=== PATIENT | female | born 1955 | race Caucasian/White ===

== ENCOUNTER 2025-04-25 14:47 | Outpatient (CLI) | payer MEDICARE, SELFPAY ==
--- OUTSIDE RECORDS SUMMARY | 2025-03-08 09:30 | XMS_ITS | Encounter Summary ---
Author Organization [facility] nter Address [address] [place] [address] Care Team Providers Care Felt Finisher Name Role Phone German Aleman Primary Care Provider Reason for Visit * Reason Comments Follow-up Varicose Veins Encounter Details Date Type Department Care Team (Late st Contact Info) Description 03/08/2025 9:30 AM EDT Office Visit [facility] [address], [address]st [place] [address] Vianca Kelly MD [address] [place] [address] Varicose veins of both legs with edema (Primary Dx) Social History Tobacco Use Types Packs/Day Years Used Date Smoking Tobacco: Never Smokeless Tobacco: Never Alcohol Use Standard Drinks/Week Comments Never 0 (1 standard drink = 0.6 oz pur e alcohol) PHQ-2 Answer Date Recorded Patient Health Questionnaire-2 Score 0 07/19/2024 Comments No Sex and Gender Information Value Date Recorded Sex Assigned at Female 10/09/2021 12:51 PM EST Legal Sex Female 12:51 PM EST Gender Identity Not on file Sexual Orientation Straight 03/01/2025 9: 46 AM EDT documented as of this encounter Last Filed Vital Signs Vital Sign Reading Time Taken Comments Blood Pressure 146/60 03/08/2025 9:40 AM EDT Pulse 91 03/08/2025 9:40 AM EDT Temperature - - Respiratory Rate - - Oxygen Saturation 93% 03/08/2025 9:40 AM EDT Inhaled Oxygen Concentration - - Weight 75.6 kg (166 lb 9.6 oz) 03/08/2025 9:40 A M EDT Height - - Body Mass Index 28.6 12/21/2024 11:32 AM EDT documented in this encounter Progress Notes * Vianca Kelly MD - 03/08/2025 9:30 AM EDT Patient ID: Lora Carter is a 69 y.o. female Date of : 1955 Date of Service: 03/08/2025 Provider: Vianca Kelly MD Chief Complaint Chief Complaint Patient presents with Follow-up Varicose Veins Subjective Leg Swelling Severity: Not severe Status: stable Complaint: Swelling Complaint: no Pain Symptoms: Swelling Location: Calf Location: Bilateral Eacerbating Factors: Sitting and worse in evening Relieving Factors: Elevation of limb Prior Treatment: Compression HISTORY Past Medical History: Diagnosis Date Arthritis Celiac disease/sprue Diabetes mellitus Environmental allergies Hyperlipidemia Hypertension Liver disease Past Surgical History: Procedure Laterality Date BLADDER SURGERY CAPSULOTOMY Bilateral 2016 Dr. Steiner PCO LASER CATARACT EXTRACTION W/ INTRAOCULAR LENS IMPLANT Left 09/09/2011 Dr. Obdulia MARSHALL ZMA00 33.0D+4D CATARACT EXTRACTION W/ INTRAOCULAR LENS IMPLANT Right 09/02/2011 Dr. Obdulia MARSHALL AMA00 34.0D+4D SECTION, CLASSIC COLONOSCOPY 2019 HYSTERECTOMY TONSILLECTOMY TOTAL HIP ARTHROPLASTY Bilateral left 07-06-2024 UPPER GASTROINTESTINAL ENDOSCOPY Social History Tobacco Use Smoking status: Never Smokeless tobacco: Never Substance Use Topics Alcohol use: Never Drug use: Never ALLERGY Allergies Allergen Reactions Percocet [Oxycodone-Acetaminophen] Nausea And Vomiting MEDICATIONS Current Outpatient Medications: Calcium Citrate (CITRACAL PO), Take by mouth in the morning., Disp: , Rfl: carvedilol (Coreg) 12.5 MG tablet, Take 1 tablet (12.5 mg) by mouth with breakfast and with eveningmeal., Disp: 180 tablet, Rfl: 3 Cholecalciferol (VITAMIN D-3 PO), Take by mouth., Disp: , Rfl: Clarinex-D 12 Hour 2.5-120 MG 12 hr tablet, Take 1 tablet by mouth in the morning and at bedtime. Take morning of surgery., Disp: , Rfl: Clobetasol Propionate 0.05 % lotion, Apply 1 Application topically in the morning and at bedtime. Hold morning of surgery., Disp: , Rfl: desonide (DesOwen) 0.05 % cream, Apply 1 application. topically if needed. Hold morning of surgery., Disp: , Rfl: estradiol (Vivelle-DOT) 0.1 MG/24HR, Place 1 patch on the skin 2 (two) times a week., Disp: , Rfl: furosemide (Lasix) 20 MG tablet, Take 1 tablet (20 mg) by mouth in the morning. Hold morning of surgery., Disp: , Rfl: glimepiride (Amaryl) 2 MG tablet, Take 1 tablet (2 mg) by mouth in the morning and at bedtime., Disp: , Rfl: ketoconazole (NIZOral) 2 % shampoo, Apply topically 2 (two) times a week., Disp: , Rfl: losartan-hydroCHLOROthiazide (Hyzaar) 100-25 MG tablet, Take 1 tablet by mouth in the morning. Holdmorning of surgery., Disp: , Rfl: Melatonin 5 MG tablet, Take 2 tablets (10 mg) by mouth at bedtime. Take night before surgery., Disp: , Rfl: metFORMIN XR (Glucophage-XR) 500 MG 24 hr tablet, Take 2 tablets (1,000 mg) by mouth in the morningand at bedtime. Hold morning of surgery., Disp: , Rfl: polyethylene glycol (Glycolax) 17 g packet, Take 17 g by mouth at bedtime. Take night before procedure., Disp: , Rfl: pravastatin (Pravachol) 40 MG tablet, Take 1 tablet (40 mg) by mouth in the evening. Take night before surgery., Disp: , Rfl: testosterone (Androgel) 25 MG/2.5GM (1%) gel, Place 1 packet (25 mg) on the skin at bedtime. Hold night before and morning of surgery., Disp: , Rfl: triamcinolone (Kenalog) 0.1 % cream, Apply 1 application. topically in the morning and at bedtime. Hold morning of procedure., Disp: , Rfl: ursodiol (Actigall) 300 MG capsule, Take 2 capsules (600 mg) by mouth in the morning and at bedtime. With food. Hold morning of procedure., Disp: , Rfl: There is no immunization history for the selected administration types on file for this patient. Health Maintenance Topic Date Due Colorectal Cancer Screening Never done DTaP/Tdap/Td Vaccines (1 - Tdap) Never done Pneumococcal Vaccine (1 of 2 - PCV) Never done Diabetes: Retinopathy Screening 05/07/2024 Diabetes: Hemoglobin A1C 09/23/2024 Influenza Vaccine (1) 04/03/2025 Mammogram 2025 RSV 60+ and patients (1 - 1-dose 75+ series) 2028 Bone Density Scan Completed RSV under 20 month Aged Out ROS Review of Systems Constitutional: Negative. HENT: Negative. Respiratory: Negative. Cardiovascular: Positive for leg swelling. Gastrointestinal: Negative. Genitourinary: Negative. Musculoskeletal: Negative. Skin: + prominent veins + spider veins Neurological: Negative. Hematological: Negative. Psychiatric/Behavioral: Negative. VITALS Vitals: 03/08/25 0940 BP: 146/60 Pulse: 91 SpO2: 93% Physical Exam Constitutional: Appearance: Normal appearance. Eyes: Pupils: Pupils are equal, round, and reactive to light. Cardiovascular: Rate and Rhythm: Normal rate. Pulses: Normal pulses. Pulmonary: Effort: Pulmonary effort is normal. Abdominal: Palpations: Abdomen is soft. Musculoskeletal: Right lower leg: No edema. Left lower leg: No edema. Skin: General: Skin is warm and dry. Comments: Varicose and spider veins bilateral lower legs and feet. Neurological: General: No focal deficit present. Mental Status: She is alert. Psychiatric: Mood and Affect: Mood normal. Behavior: Behavior normal. Assessment/Plan 1. Varicose veins of both legs with edema Has spider veins of BLE. Denies aching, itching, or dragging. She reports Improvement with compression stockings. Plan: Continue compression stockings to be worn during waking hours. Daily leg elevation advised. Increase walking distance and duration. Do not sleep in a sitting position. Discussed sodium control. Maintain healthy BP and cholesterol levels. Sclerotherapy was discussed as option for treatment of spider veins. Patient will consider this andcontact office if interested in scheduling. Follow up in 1 year for symptom check. Patient care plan was discussed in detail. Patient verbalized understanding and agreement to the treatment plan. All patient questions were addressed. If new or worsening symptoms develop go to ER. I was present for this encounter, and I interviewed and examined the patient. This note represents my assessment and plan Vianca Kelly MD, FACS Vascular Surgery. documented in this encounter Plan of Treatment Upcoming Encounters Date Type Department Care Team (Late st Contact Info) Description 05/19/2025 10:00 AM EDT Appointment [facility] - GENERAL DIAGNOSTIC [facility] [address], [place] [id number] 06/22/2025 10:00 AM EST Office Visit [facility] [address], 6[address] [place] [address] Lauri Lindsey MD [address] [place] [address] 06/26/2025 11:00 AM EST Office Visit [facility] [address], [address]st [place] [address] Tamara Burrows NP [address] [place] [address] 03/09/2026 9:30 AM EDT Office Visit [facility] [address], [address] [place] [address] Vianca Kelly MD [address] [facility] [place] [address] documented as of this encounter Visit Diagnoses Diagnosis Varicose veins of both legs with edema- Primary documented in this encounter Care Teams Felt Finisher Relationship Specialty Start Date End Date German Aleman, [address] [facility] [address] [place] [address] PCP - General Family Medicine 12/26/22 documented as of this encounter
--- OUTSIDE RECORDS SUMMARY | 2025-04-25 14:55 | XMS_ITS | Encounter Summary ---
Author Organization [facility] nter Address [address] [place] [address] Care Team Providers Care Outboard System Operator Name Role Phone German Aleman Primary Care Provider Encounter Details Date Type Department Care Team (Late st Contact Info) Description 07/07/2024 Orders Only [facility] [address], 6th [place] [id number] Barby Elvi Palomares, RETAIL LOSS PREVENTION OFFICER [address] [place] [address] Social History Tobacco Use Types Packs/Day Years Used Date Smoking Tobacco: Never Smokeless Tobacco: Never Alcohol Use Standard Drinks/Week Comments Never 0 (1 standard drink = 0.6 oz pur e alcohol) PHQ-2 Answer Date Recorded Patient Health Questionnaire-2 Score 0 06/23/2024 Comments No Sex and Gender Information Value Date Recorded Sex Assigned at Female 10/09/2021 12:51 PM EST Legal Sex Female 12:51 PM EST Gender Identity Not on file Sexual Orientation Straight 03/01/2025 9: 46 AM EDT documented as of this encounter Plan of Treatment Upcoming Encounters Date Type Department Care Team (Late st Contact Info) Description 05/19/2025 10:00 AM EDT Appointment [facility] - GENERAL DIAGNOSTIC [address] [place] [address] 06/22/2025 10:00 AM EST Office Visit [facility] [address], 6th [place] [address] Lauri Lindsey MD [facility] [place] [address] 06/26/2025 11:00 AM EST Office Visit [facility] [address], 1st [place] [address] Tamara Burrows NP [address] [place] [address] 03/09/2026 9:30 AM EDT Office Visit [facility] [address], [address] [place] [address] Vianca Kelly MD [facility] [place] [address] documented as of this encounter Visit Diagnoses Not on filedocumented in this encounter Care Teams Outboard System Operator Relationship Specialty Start Date End Date German Aleman DO [address] [facility] [place] [address] [place] [address] PCP - General Family Medicine 12/26/22 documented as of this encounter
--- OUTSIDE RECORDS SUMMARY | 2025-04-25 14:55 | XMS_ITS | Clinical Summary ---
Author Organization Healthcare Address [address] [place] [address] Care Team Providers Care Order Clerk Name Role Phone Kasie Breen MD Primary Care Provider [phone] Family History Medical History Relation Name Comments Osteoporosis Other Relation Name Status Comments Other Social History Tobacco Use Types Packs/Day Years Used Date Smoking Tobacco: Never Alcohol Use Standard Drinks/Week Comments No 0 (1 standard drink = 0.6 oz pure alcohol) Alcoholic Drinks/day: Never Drank Alcohol Comments Unknown Sex and Gender Information Value Date Recorded Sex Assigned at Not on file Legal Sex Female 6:05 PM EDT Gender Identity Not on file Sexual Orientation Not on file Last Filed Vital Signs Vital Sign Reading Time Taken Comments Blood Pressure - - Pulse - - Temperature - - Respiratory Rate - - Oxygen Saturation - - Inhaled Oxygen Concentration - - Weight 66.2 kg (146 lb 0.2 oz) 09/21/2013 3:05 P M EST Height 161.3 cm (5' 3.5 ) 09/21/2013 3:05 PM EST Body Mass Index 25.46 09/21/2013 3:05 PM EST Plan of Treatment Not on file Care Teams Order Clerk Relationship Specialty Start Date End Date Kasie Breen MD [address] [place], [place] [id number] PCP - General 12/14/20
--- OUTSIDE RECORDS SUMMARY | 2025-04-25 14:55 | XMS_ITS | Encounter Summary ---
Author Organization [facility] nter Address [address] [place] [address] Care Team Providers Care Seat Mender Name Role Phone German Aleman Primary Care Provider Encounter Details Date Type Department Care Team (Late st Contact Info) Description 03/20/2023 Orders Only [facility] [address], 1st [place] [address] Vianca Kelly MD [address] [place] [address] Social History Tobacco Use Types Packs/Day Years Used Date Smoking Tobacco: Never Smokeless Tobacco: Never Alcohol Use Standard Drinks/Week Comments Never 0 (1 standard drink = 0.6 oz pur e alcohol) Comments Unknown Sex and Gender Information Value Date Recorded Sex Assigned at Female 10/09/2021 12:51 PM EST Legal Sex Female 12:51 PM EST Gender Identity Not on file Sexual Orientation Straight 03/01/2025 9: 46 AM EDT COVID-19 Exposure Response Date Recorded In the last 10 days, have yo u been in contact with someone who was confirmed or suspected to have Coronavirus/COVID-19? No / Unsure 03/04/2023 8:17 AM EDT documented as of this encounter Plan of Treatment Upcoming Encounters Date Type Department Care Team (Late st Contact Info) Description 05/19/2025 10:00 AM EDT Appointment [facility] - GENERAL DIAGNOSTIC [address], [facility] [place] [address] 06/22/2025 10:00 AM EST Office Visit [facility] [address], 6th [place] [address] Lauri Lindsey MD [address] [facility] [place] [address] 06/26/2025 11:00 AM EST Office Visit [facility] [address], [address]st [place] [address] Tamara Burrows NP [address] [place] [id number] 03/09/2026 9:30 AM EDT Office Visit [facility] [address], [address] [place] [address] Vianca Kelly MD [address] [facility] [place] [address] documented as of this encounter Visit Diagnoses Not on filedocumented in this encounter Care Teams Seat Mender Relationship Specialty Start Date End Date German Aleman DO [address] [facility] [address] [place] [address] PCP - General Family Medicine 12/26/22 documented as of this encounter
--- OUTSIDE RECORDS SUMMARY | 2025-04-25 14:55 | XMS_ITS | Encounter Summary ---
Author Organization [facility] nter Address [address] [place] [address] Care Team Providers Care Gum Worker Name Role Phone German Aleman Primary Care Provider Encounter Details Date Type Department Care Team (Latest Contact Info) Description 03/01/2025 Travel Social History Tobacco Use Types Packs/Day Years [...] Info) Description 05/19/2025 10:00 AM EDT Appointment [facility] - [facility]AL DIAGNOSTIC [address], [place] [address] 06/22/2025 10:00 AM EST Office Visit [facility] [address], 6[address] [place] [address] Lauri Lindsey MD [address] [place] [address] 06/26/2025 11:00 AM EST Office Visit [facility] [address], 1st [place] [address] Tamara Burrows NP [address] [place] [address] 03/09/2026 9:30 AM EDT Office Visit [facility] [address], 1[address] [place] [address] Vianca Kelly MD [address] [place] [address] documented as of this encounter Visit Diagnoses Not on filedocumented in this encounter Care Teams Gum Worker Relationship Specialty Start Date End Date German Aleman DO [address] [facility] [address] [place] [address] PCP - General Family Medicine 12/26/22 documented as of this encounter
--- OUTSIDE RECORDS SUMMARY | 2025-04-25 14:55 | XMS_ITS | Clinical Summary ---
Author Organization [facility] nter Address [address] [place] [address] Care Team Providers Care Kitchen Help Handyman Name Role Phone AlemanGerman arias Primary Care Provider Allergies Active Allergy Reactions Criticality Noted Date Comments Oxycodone-Acetaminophen Nausea And Vomiting Medications Clobetasol Propionate 0.05 % lotion Apply 1 Application topically in the morning and at bedtime. Hold morning of surgery. Active Clarinex-D 12 Hour 2.5-120 MG 12 hr tablet Take 1 tablet by mouth in the morning and at bedtime. Take morning of surgery. 3 Active desonide (DesOwen) 0.05 % cream Apply 1 application. topically if needed. Hold morning of surgery. 3 Active estradiol (Vivelle-DOT) 0.1 MG/24HR Place 1 patch on the skin 2 (two) times a week. 3 Active losartan-hydroC HLOROthiazide (Hyzaar) 100-25 MG tablet Take 1 tablet by mouth in the morning. Hold morning of surgery. 3 Active metFORMIN XR (Glucophage-XR) 500 MG 24 hr tablet Take 2 tablets (1,000 mg) by mouth in the morning and at bedtime. Hold morning of surgery. 3 Active Melatonin 5 MG tablet Take 2 tablets (10 mg) by mouth at bedtime. Take night before surgery. Active polyethylene glycol (Glycolax) 17 g packet Take 17 g by mouth at bedtime. Take night before procedure. Active pravastatin (Pravachol) 40 MG tablet Take 1 tablet (40 mg) by mouth in the evening. Take night before surgery. 3 Active triamcinolone (Kenalog) 0.1 % cream Apply 1 application. topically in the morning and at bedtime. Hold morning of procedure. 2 Active ursodiol (Actigall) 300 MG capsule Take 2 capsules (600 mg) by mouth in the morning and at bedtime. With food. Hold morning of procedure. 3 Active testosterone (Androgel) 25 MG/2.5GM (1%) gel Place 1 packet (25 mg) on the skin at bedtime. Hold night before and morning of surgery. Active ketoconazole (NIZOral) 2 % shampoo Apply topically 2 (two) times a week. Active Cholecalciferol (VITAMIN D-3 PO) Take by mouth. Activ e Calcium Citrate (CITRACAL PO) Take by mouth in the morning. Active furosemide (Lasix) 20 MG tablet Take 1 tablet (20 mg) by mouth in the morning. Hold morning of surgery. Active carvedilol (Coreg) 12.5 MG tabletIndicatio ns:Essential hypertension, benign Take 1 tablet (12.5 mg) by mouth with breakfast and with evening meal. 180 tablet 3 5 12/22/19 26 Active glimepiride (Amaryl) 2 MG tablet Take 1 tablet (2 mg) by mouth in the morning and at bedtime. Active Active Problems Problem Noted Date Diagnosed Date Encounter for screening for cardiovascular disor ders 03/20/2023 Varicose veins of both legs with edema 3 Spider veins of both lower extremities 3 Leg swelling 03/04/2023 Type 2 diabetes mellitus wit hout complication, without long-term current use of insulin 05/07/2022 Pseudophakia 05/07/2022 Encounters Date Type Department Care Team Description 03/08/2025 9:30 AM EDT Office Visit [facility] [address] 1[address] Floor [facility] [address] Vianca Kelly MD Varicose veins of both legs with edema (Primary Dx) 03/08/2025 Travel 03/01/2025 Travel from Last 3 Months Family History Medical History Relation Name Comments Cancer Father Cataracts Father Heart disease Father Cataracts Mother Heart disease Mother Relation Name Status Comments Father Mother Social History Tobacco Use Types Packs/Day Years Used Date Smoking Tobacco: Never Smokeless Tobacco: Never Tobacco Cessation:Counseling Given: Not Answered Alcohol Use Standard Drinks/Week Comments Never 0 (1 standard drink = 0.6 oz pur e alcohol) PHQ-2 Answer Date Recorded Patient Health Questionnaire-2 Score 0 07/19/2024 Comments No Sex and Gender Information Value Date Recorded Sex Assigned at Female 10/09/2021 12:51 PM EST Legal Sex Female 12:51 PM EST Gender Identity Not on file Sexual Orientation Straight 03/01/2025 9: 46 AM EDT Last Filed Vital Signs Vital Sign Reading Time Taken Comments Blood Pressure 146/60 03/08/2025 9:40 AM EDT Pulse 91 03/08/2025 9:40 AM EDT Temperature 37 C (98.6 F) 12/01/2024 10:53 AM EDT Respiratory Rate 18 12/01/2024 10:53 AM EDT Oxygen Saturation 93% 03/08/2025 9:40 AM EDT Inhaled Oxygen Concentration - - Weight 75.6 kg (166 lb 9.6 oz) 03/08/2025 9:40 A M EDT Height 162.6 cm (5' 4 ) 12/21/2024 11:32 AM EDT Body Mass Index 28.6 12/21/2024 11:32 AM EDT Plan of Treatment Upcoming Encounters Date Type Department Care Team (Late st Contact Info) Description 05/19/2025 10:00 AM EDT Appointment [facility] - GENERAL DIAGNOSTIC BLDG D [address] [place] [address] 06/22/2025 10:00 AM EST Office Visit [facility] [address], [address] [place] [address] Lauri Lindsey MD [address] [facility] [place] [address] 06/26/2025 11:00 AM EST Office Visit [facility] [address] [place] [address] Tamara Burrows NP [address] [place], [place] [id number] 03/09/2026 9:30 AM EDT Office Visit [facility] [address], [address] [place] [address] Vianca Kelly MD [address] [place] [address] Health Maintenance Due Date Last Done Comments CT Colonography 1953 ColoGuard Screening 1953 Colonoscopy 1953 Colorectal Cancer Screening 1953 FIT-DNA 1953 FIT 1953 FOBT 1953 Sigmoidoscopy 1953 DTaP/Tdap/Td Vaccines (1 - Tdap) 1972 Pneumococcal Vaccine (1 of 2 - PCV) 1972 Diabetes: Retinopathy Screening 05/07/2024 05/07/2022, 05/07/2022, 05/07/2022, Additional history exists Diabetes: Hemoglobin A1C 09/23/2024 06/23/2024 Influenza Vaccine (#1) 2025 Mammogram 2025 2024, 1001/2023, 05/22/2022, Additional history exists RSV 60+ and patients (1 - 1-dose 75+ series) 2028 Bone Density Scan Completed 06/18/2021, 06/18/2021 RSV under 20 month Aged Out No longer eligible based on patient's age to complete this topic Medical Devices Implanted Type Area Customer Service Associate Device Identifier Shelf Expiration Date Model / Serial / Lot Acetabular Shell G7 3h/46mm B [id number] - [id number] Implanted:Qty: 1 on 07/06/2024 by Lauri Lindsey MD at [facility] Left: Hip [employer] 01/03/2034 [id number] / / [id number] Screw Bone 6.5 X25 Self-Tapping - [id number] Implanted:Qty: 1 on 07/06/2024 by Lauri Lindsey MD at [facility] Left: Hip [employer] 05/23/2034 [id number] / / [id number] G7 Acetabular System Liner 32mm Sz B - [id number] Implanted:Qty: 1 on 07/06/2024 by Lauri Lindsey MD at [facility] Left: Hip [employer] 02/10/2029 [id number] / / [id number] Biolox Delta Fem Head 32mm - [id number] Implanted:Qty: 1 on 07/06/2024 by Lauri Lindsey MD at [facility] Left: Hip [employer] 03/02/2034 [id number] / / [id number] Avenir Complete Hip System Sz 3 - [id number] Implanted:Qty: 1 on 07/06/2024 by Lauri Lindsey MD at [facility] Left: Hip [employer] 10/08/2028 [id number] / / [id number] Procedures Procedure Name Priority Date/Time Associated Diagnosis Comments HEMOGLOBIN A1C Routine 06/23/2024 1:00 PM EST Primary osteoarthritis of left hip Fatigue, unspecified type SOB (shortness of breath) Diabetes mellitus of other type without complication, unspecified whether superintendent container terminal insulin use DEXA BONE DENSITY EXTREMITY Routine 06/18/2021 10:19 AM EST from Last 3 Months or Most Recently Relevant to Health Maintenance Results * (ABNORMAL) Hemoglobin A1c (06/23/2024 1:00 PM EST) Hemoglobin A1C 9.4(H) 3.0 - 6.0 % 06/23/2024 2:14 PM EST [facility] Comment: Additional Reference Ranges: 6.0 - 9.0% Controlled Diabetic >9.0 Poorly Controlled Diabetic *Hemoglobin A1c is an FDA approved test for monitoring superintendent container terminal glucose control in individuals with diabetes. It is not an approved screening test for diagnosing type 1 and type 2 diabetes. Results of Hemoglobin A1c are not reliable in patients with chronic blood loss, consequent variable erythrocyte lifespan, hemolytic diseases, , and significant blood loss. MEAN BLOOD GLUCOSE 223.08 mg/dl 06/23/2024 2:14 PM EST [facility] Blood Venous blood specimen / Unknown Venipuncture / Unknown 06/23/2024 1:00 PM EST 06/23/2024 1:43 PM EST Narrative [facility] - 06/23/2024 2:14 PM EST Please note possible changes in reference range and units reported due to change in methodology. Lauri Lindsey MD LAB BLOOD ORDERABLES Final Resul t Performing Organization Address City/State/[facility] Co de Phone Number [facility] [address] [place] [address], * DEXA bone density extremity (06/18/2021 10:19 AM EST) Anatomical Region Laterality Modality Body Radiographic Madai ging 06/18/2021 10:1 9 AM EST Narrative 06/19/2021 1:55 PM EST AP SPINE (L1-L4): BMD 0.838 T-SCORE -1.9 Z-SCORE 0.1 CLASSIFICATION: OSTEOPENIA HIP: TOTAL BMD 0.929 T-SCORE -0.1 Z-SCORE 1.3 NECK BMD 0.743 T-SCORE -1.0 Z-SCORE 0.7 TROCH BMD 0.721 T-SCORE 0.2 Z-SCORE 1.4 CLASSIFICATION: OSTEOPENIA Change from prior scan of 06/25/2016 L1-L4 8.9% Femur 7.0% GENERAL INFORMATION: From the National Osteoporosis Foundation Defining Osteoporosis by BMD The World Health Organization has established the following definitions based on bone mass measurement at the spine, hip, or wrist in white postmenopausal women: NORMAL: BMD is within 1 SD of a young normal adult (T-score at -1.0 and above). OSTEOPENIA: Low bone mass. BMD is between 1 and 2.5 SD below that of a young normal adult (T-score between -1 and -2.5) OSTEOPOROSIS: BMD is 2.5 SD or more below that of a young normal adult (T-score at or below -2.5) Women in this group who have already experienced one or more fractures are deemed to have severe or established osteoporosis. Although these definitions are necessary to establish the prevalence of osteoporosis, they should not be sued as the sole determinant of treatment decisions. NOTE: 1. The densitometry reports also provide Z scores which represent the standard deviations (SD) from age and sex-matched control subjects. 2. The Z score can provide useful diagnostic information because a Z score of -2 or greater below the age and sex-matched control may suggest a secondary cause of osteoporosis. 3. For each 10% decrease in BMD, the fracture risk approximately doubles. Report Sign Date: 06/19/2021 1:53 PM, Electronically Signed By: Salas Vargas MD Impression: SEE REPORT Procedure Note Juice Vargas MD - 10/17/2021 AP SPINE (L1-L4): BMD 0.838 T-SCORE -1.9 Z-SCORE 0.1 CLASSIFICATION:OSTEOPENIA HIP: TOTAL BMD 0.929 T-SCORE -0.1 Z-SCORE 1.3 NECK BMD 0.743 T-SCORE -1.0 Z-SCORE 0.7 TROCH BMD 0.721 T-SCORE 0.2 Z-SCORE 1.4 CLASSIFICATION:OSTEOPENIA Change from prior scan of 06/25/2016 L1-L4 8.9% Femur 7.0% GENERAL INFORMATION: From the National Osteoporosis Foundation Defining Osteoporosis by BMD The World Health Organization has established the following definitionsbased on bone mass measurement at the spine, hip, or wrist in whitepostmenopausal women: NORMAL: BMD is within 1 SD of a young normal adult (T-score at -1.0and above). OSTEOPENIA: Low bone mass. BMD is between 1 and 2.5 SD below that of a young normal adult (T-score between -1 and -2.5) OSTEOPOROSIS: BMD is 2.5 SD or more below that of a young normal adult(T-score at or below -2.5) Women in this group who have alreadyexperienced one or more fractures are deemed to have severe or established osteoporosis. Although these definitions are necessary to establish the prevalence ofosteoporosis, they should not be sued as the sole determinant of treatmentdecisions. NOTE: 1. The densitometry reports also provide Z scores which represent thestandard deviations (SD) from age and sex-matched control subjects. 2. The Z score can provide useful diagnostic information because a Zscore of -2 or greater below the age and sex-matched control may suggest asecondary cause of osteoporosis. 3. For each 10% decrease in BMD, the fracture risk approximatelydoubles. Report Sign Date: 06/19/2021 1:53 PM, Electronically Signed By: Salas Vargas MD Impression: SEE REPORT German Aleman DO IMG DXA PROCEDURES Mckenzie l Result from Last 3 Months or Most Recently Relevant to Health Maintenance Insurance MEDICARE REPLACEMENT Advance Directives * Full Code (Latest Code Status on File) Date Activated Date Inactivated Comments 07/06/2024 7:40 AM 07/06/2024 7:34 PM Care Teams Kitchen Help Handyman Relationship Specialty Start Date End Date German Aleman DO [address] [facility] [address] [place] [address] PCP - General Family Medicine 12/26/22
--- OUTSIDE RECORDS SUMMARY | 2025-04-25 14:55 | XMS_ITS | Encounter Summary ---
Author Organization [facility] nter Address [address] [place] [address] Care Team Providers Care Separator Operator Name Role Phone German Aleman Primary Care Provider Encounter Details Date Type Department Care Team (Latest Contact Info) Description 03/08/2025 Travel Social History Tobacco Use Types Packs/Day [...] BLDG D [address], [place] [address] 06/22/2025 10:00 AM EST Office Visit [facility] [address], 6th [place] [address] Lauri Lindsey MD [address] [place] [address] 06/26/2025 11:00 AM EST Office Visit [facility] [address], 1st [place] [address] Tamara Burrows NP [address] [place] [address] 03/09/2026 9:30 AM EDT Office Visit [facility] [address], 1st [place] [address] Vianca Kelly MD [address] [place] [address] documented as of this encounter Visit Diagnoses Not on filedocumented in this encounter Care Teams Separator Operator Relationship Specialty Start Date End Date German Aleman DO [address] [facility] [address] [place] [address] PCP - General Family Medicine 12/26/22 documented as of this encounter
--- OUTSIDE RECORDS SUMMARY | 2025-04-25 14:55 | XMS_ITS | Encounter Summary ---
Author Organization [facility] nter Address [address] [place] [address] Care Team Providers Care Remodeler Name Role Phone German Aleman Primary Care Provider Encounter Details Date Type Department Care Team (Late st Contact Info) Description 10/22/2023 Telephone [facility] [address], [address] [place] [address] Sen Partida [address] [place] [address] Social History Tobacco Use Types Packs/Day Years [...] BLDG D [address], [place] [address] 06/22/2025 10:00 AM EST Office Visit [facility] [address], 6th [place] [address] Lauri Lindsey MD [facility] [place] [address] 06/26/2025 11:00 AM EST Office Visit [facility] [address], [address] [place] [address] Tamara Burrows NP [facility] [address] [place] [id number] 03/09/2026 9:30 AM EDT Office Visit [facility] [address], [address] [place] [address] Vianca Kelly MD [facility] [place] [address] documented as of this encounter Visit Diagnoses Not on filedocumented in this encounter Care Teams Remodeler Relationship Specialty Start Date End Date German Aleman DO [address] [facility] [address] [place] [address] PCP - General Family Medicine 12/26/22 documented as of this encounter
--- OUTSIDE RECORDS SUMMARY | 2025-04-25 14:55 | XMS_ITS | Encounter Summary ---
Author Organization [facility] nter Address [address] [place] [address] Care Team Providers Care Fire Management Technician Name Role Phone German Aleman DO Primary Care Provider Reason for Referral * Imaging (Routine) - Authorized Specialty Diagnoses / Procedures Referred By Contangelique t Referred To Contact Radiology Diagnoses Other specified disorders of bone density and structure, multiple sites Procedures DEXA bone density axial skeleton German Aleman DO [address] [facility] [address] [place] [address] Phone: tel: fax: [facility] [address] [place] [address] Phone: tel: fax: Referral ID Status Reason Start Date Expiration Date Visits Requested Visits Authorized [id number] Authorized Specialty Services Required 12/15/2024 12/15/2025 1 1 Encounter Details Date Type Department Care Team (Late st Contact Info) Description 12/14/2024 Community Orders [facility] Link [address] [place] [id number] German Aleman, DO [address] [facility] [address] [place] [phone] Osteopenia after menopause (Primary Dx); Other specified disorders of bone density and structure, multiple sites Social History Tobacco Use Types Packs/Day Years [...] Info) Description 05/19/2025 10:00 AM EDT Appointment [facility] - GENERAL DIAGNOSTIC BLDG D [address], [facility] [place] [address] 06/22/2025 10:00 AM EST Office Visit [facility] [address] 6th [place] [address] Lauri Lindsey MD [address] [place] [address] 06/26/2025 11:00 AM EST Office Visit [facility] [address], [address] [place] [address] Tamara Burrows NP [address] [place] [address] 03/09/2026 9:30 AM EDT Office Visit [facility] [address], 1[address] [place] [phone] Vianca Kelly MD [address] [place] [address] [place] [address] Scheduled Orders Name Type Priority Associated Diagnoses Orde r Schedule DEXA bone density axial skeleton Imaging Routine Other specified disorders of bone density and structure, multiple sites Expected: 12/15/2024, Expires: 12/15/2025 documented as of this encounter Visit Diagnoses Diagnosis Osteopenia after menopause- Primary Other specified disorders of bone density and structure, multiple sites documented in this encounter Care Teams Fire Management Technician Relationship Specialty Start Date End Date German Aleman DO [address] [facility] [address] [place] [address] PCP - General Family Medicine 12/26/22 documented as of this encounter
--- OUTSIDE RECORDS SUMMARY | 2025-04-25 14:55 | XMS_ITS | Clinical Summary ---
Author Organization [facility] Address [address] [place] [address] Care Team Providers Care Press Manager Name Role Phone AlemanGerman arias Jose Primary Care Provider Allergies No known active allergies Medications doxycycline (VIBRAMYCIN) 100 MG capsule 8 Active MINIVELLE 0.075 MG/24HR patch 8 Active ibuprofen (ADVIL,MOTRIN) 400 MG tablet 8 Active losartan-hydroc hlorothiazide (HYZAAR) 100-25 MG per tablet 8 Active metFORMIN ER (GLUCOPHAGE-XR) 500 MG 24 hr tablet 8 Active omeprazole (priLOSEC) 20 MG capsule 8 Active pravastatin (PRAVACHOL) 10 MG tablet 8 Active ursodiol (ACTIGALL) 300 MG capsule 8 Active valACYclovir (VALTREX) 500 MG tablet 8 Active Desloratadine-P seudoephedrine (CLARINEX-D 12 HOUR PO) Take by mouth. Activ e clobetasol (CLOBEX) 0.05 % lotion Apply topically 2 (Two) Times a Day. Active Probiotic Product (Paperless Transaction Management PO) Take by mouth. Acti ve aspirin 81 MG EC tablet Take 81 mg by mouth Daily. Active Calcium-Phospho armando-Vitamin D (CITRACAL +D3 PO) Take by mouth. Activ e melatonin 5 MG tablet tablet Take 5 mg by mouth Daily. Active B Complex Vitamins (B-COMPLEX/B-12 PO) Take by mouth. Activ e Multiple Vitamins-Minera ls (MULTIVITAMIN PO) Take by mouth. Activ e Cholecalciferol (VITAMIN D3 PO) Take by mouth. Active polyethylene glycol (MIRALAX) pack packet Take 17 g by mouth Daily. Active Active Problems Problem Noted Date Diagnosed Date Venous stasis 12/23/2017 Mass of right foot 12/23/2017 Family History Medical History Relation Name Comments Cancer Father Diabetes Father Heart attack Mother Osteoarthritis Mother Breast cancer Neg Hx Ovarian cancer Neg Hx Relation Name Status Comments Father Mother Social History Tobacco Use Types Packs/Day Years Used Date Smoking Tobacco: Never Smokeless Tobacco: Never Alcohol Use Standard Drinks/Week Comments No 0 (1 standard drink = 0.6 oz pur e alcohol) Abuse Screen Answer Date Recorded Unsafe at Home or Work/School Not on file Feels Threatened by Someone? Not on file 04/2023 Does Anyone Keep You from Co ntacting Others or Doint Things Outside the Home? Not on file 05/11/2023 Physical Sign of Abuse Present Not on file 1 Housing Stability Answer Date Recorded Current Living Arrangements Not on file 04/2023 Potentially Unsafe Housing Conditions Not on evangelist e 05/11/2023 Family and Community Support Answer Miguel Angel e Recorded Help with Day-to-Day Activities Not on file 05/11/2023 Lonely or Isolated Not on file 05/11/2023 Employment Answer Date Recorded Do you want help finding or keeping work or a hector b? Not on file 05/11/2023 Disabilities Answer Date Recorded Concentrating, Remembering, or Making Decisions Difficulty Not on file 05/11/2023 Doing Errands Independently Difficulty Not on fi le 05/11/2023 Education Answer Date Recorded Help with school or training? Not on file Preferred Language Not on file 05/11/2023 Comments No Sex and Gender Information Value Date Recorded Sex Assigned at Not on file Legal Sex Female 12:50 PM EDT Gender Identity Not on file Sexual Orientation Not on file Last Filed Vital Signs Vital Sign Reading Time Taken Comments Blood Pressure 154/72 12/23/2017 2:25 PM EDT Pulse 101 12/23/2017 2:25 PM EDT Temperature - - Respiratory Rate - - Oxygen Saturation - - Inhaled Oxygen Concentration - - Weight 68.4 kg (150 lb 12.7 oz) 12/23/2017 2:25 PM EDT Height 160 cm (5' 3 ) 12/23/2017 2:25 PM EDT Body Mass Index 26.71 12/23/2017 2:25 PM EDT Plan of Treatment Upcoming Encounters Date Type Department Care Team (Late st Contact Info) Description 06/08/2025 2:20 PM EST Appointment [facility] [place] [place] [address] Health Maintenance Due Date Last Done Comments TDAP/TD VACCINES (1 - Tdap) 1972 COLOGUARD 1998 COLON CANCER SCREENING 5 YEA R SIGMOIDOSCOPY 1998 COLONOSCOPY 1998 [address] CANCER SCREENING 1998 CT COLONOGRAPHY 1998 FECAL OCCULT BLOOD TEST 1998 FIT Testing (1 year) 1998 Pneumococcal Vaccine 50+ (1 of 1 - PCV) 2003 ZOSTER VACCINE (1 of 2) 2003 ANNUAL WELLNESS VISIT 12/23/2017 HEPATITIS C SCREENING 12/23/2017 DXA SCAN 06/18/2023 06/18/2021, 06/18/2021 INFLUENZA VACCINE 03/03/2025 COVID-19 Vaccine (3 - 2024-2 6 season) 2025 10/09/2020, 09/18/2020 MAMMOGRAM 2026 2024, 05/04, 05/22/2022, Additional history exists HEMOGLOBIN A1C Discontinued 06/23/2024 Procedures Procedure Name Priority Date/Time Associated Diagnosis Comments MAMMO SCREENING DIGITAL TOMOSYNTHESIS BILATERAL W CAD Routine 2024 12:18 PM EDT Visit for screening mammogram from Last 3 Months or Most Recently Relevant to Health Maintenance Results * Mammo Screening Digital Tomosynthesis Bilateral With CAD (2024 12:18 PM EDT) Anatomical Region Laterality Modality Breast N/A Mammography 06/02/2024 12:1 4 PM EDT Impressions 06/02/2024 12:17 PM EDT Benign screening mammogram. RECOMMENDATION: Continue annual screening mammography. BI-RADS CATEGORY 2, BENIGN. CAD was utilized. The standard false-negative rate of mammography is between 10% and 25%. Complex patterns or increased breast density will markedly elevate the false-negative rate of mammography. A letter, in lay terminology, with the results of this exam will be mailed to the patient. This report was finalized on 06/02/2024 12:[address] Scott Jeronimo MD. Narrative 06/02/2024 12:17 PM EDT DIGITAL SCREENING MAMMOGRAM WITH TOMOSYNTHESIS HISTORY: Screening Mammography. Low dose full field digital breast tomosynthesis imaging was performed with 2D and 3D acquisitions consisting of bilateral CC and MLO views. Examination is compared to prior examination dating back to 08/22/2016. Examination is read in conjunction with computer aided detection. FINDINGS: There are scattered areas of fibroglandular density. No suspicious masses, microcalcifications or areas of architectural distortion are identified. Prior left breast biopsy changes are stable. Wilman Little MD IMG MAMMOGRAPHY ORDERABL ES Final Result from Last 3 Months or Most Recently Relevant to Health Maintenance Insurance [facility] Medicare [employer] PPO Care Teams Press Manager Relationship Specialty Start Date End Date German Aleman DO [address] [facility] [address] [place] [address] PCP - General Family Medicine 05/22/22
--- OUTSIDE RECORDS SUMMARY | 2025-04-25 14:55 | XMS_ITS | Encounter Summary ---
Author Organization [facility] nter Address [address] [place] [address] Care Team Providers Care Sign Shop Supervisor Name Role Phone German Aleman DO Primary Care Provider Reason for Referral * Consultation (Routine) - Authorized Specialty Diagnoses / Procedures Referred By Breanne bates Referred To Contact Diabetes Services Diagnoses Diabetes education, encounter for Procedures FL OFFICE/OUTPATIENT NEW SF MDM 15 MINUTES FL OFFICE/OUTPATIENT NEW LOW MDM 30 MINUTES FL OFFICE/OUTPATIENT NEW MODERATE MDM 45 MINUTES FL OFFICE/OUTPATIENT NEW HIGH MDM 60 MINUTES FL OFFICE/OUTPATIENT ESTABLISHED SF MDM 10 MIN FL OFFICE/OUTPATIENT ESTABLISHED LOW MDM 20 MIN FL OFFICE/OUTPATIENT ESTABLISHED MOD MDM 30 MIN FL OFFICE/OUTPATIENT ESTABLISHED HIGH MDM 40 MIN German Aleman DO [address] [facility] [address] [place] [address] Phone: tel: fax: [facility] [address] [place] [address] Phone: tel: fax: Referral ID Status Reason Start Date Expiration Date Visits Requested Visits Authorized [id number] Authorized Specialty Services Required 11/07/2024 11/07/2025 1 3 Encounter Details Date Type Department Care Team (Late st Contact Info) Description 11/07/2024 Community Orders [facility] Link [address] [place], [place] [phone] German Aleman DO [address] [facility] [address] [place] [phone] Diabetes education, encounter for (Primary Dx) Social History Tobacco Use Types [...] Info) Description 05/19/2025 10:00 AM EDT Appointment [facility] - GENERAL DIAGNOSTIC [facility] [address] [place] [address], [facility] [place] [address] 06/22/2025 10:00 AM EST Office Visit [facility]ACT[facility] [address] 6th [place] [address] Lauri Lindsey MD [address] [place] [address] [place] [address] 06/26/2025 11:00 AM EST Office Visit [facility] CARDIOLOGY PRACTICE [facility] [address] [place] [address] Tamara Burrows NP [address] [place] [address] 03/09/2026 9:30 AM EDT Office Visit [facility] [address] [place] [address] Vianca Kelyl MD [address] [facility] [place] [address] Scheduled Referrals Name Type Priority Associated Diagnoses Order Schedule Ambulatory referral/appointment with Diabetic Education Outpatient Referral Routine Diabetes education, encounter for Expected: 11/07/2024 (Approximate), Expires: 11/07/2025 documented as of this encounter Visit Diagnoses Diagnosis Diabetes education, encounter for- Primary documented in this encounter Care Teams Sign Shop Supervisor Relationship Specialty Start Date End Date German Aleman DO [address] [facility] [address] [place] [address] PCP - General Family Medicine 12/26/22 documented as of this encounter
--- OUTSIDE RECORDS SUMMARY | 2025-04-25 14:55 | XMS_ITS | Encounter Summary ---
Author Organization [facility] nter Address [address] [place] [address] Care Team Providers Care Film Casting Operator Name Role Phone German Aleman Primary Care Provider Encounter Details Date Type Department Care Team (Late st Contact Info) Description 12/01/2023 Telephone [facility] [address] [place] [address] Emilie Narvaez [address] [place] [address] Social History Tobacco Use Types Packs/Day Years [...] BLDG D [address], [place] [address] 06/22/2025 10:00 AM EST Office Visit [facility] [address] 6th [place] [address] Lauri Lindsey MD [facility] [place] [address] 06/26/2025 11:00 AM EST Office Visit [facility] [address], [address] [place] [address] Tamara Burrows NP [facility] [place] [address] 03/09/2026 9:30 AM EDT Office Visit [facility] [address] [place] [address] Vianca Kelly MD [facility] [place] [address] documented as of this encounter Visit Diagnoses Not on filedocumented in this encounter Care Teams Film Casting Operator Relationship Specialty Start Date End Date German Aleman DO [address] [facility] [address] [place] [address] PCP - General Family Medicine 12/26/22 documented as of this encounter
[2025-04-25 16:28] LABS: Hematocrit 38.2 % (37.0-47.0); Hemoglobin 12.6 g/dL (12.2-16.2); Immature Granulocytes % 0.5 %; Mean Corpuscular HGB Conc 33.0 g/dL (31.8-35.4); Mean Corpuscular Hemoglobin 29.0 pg (27.0-31.2); Mean Corpuscular Volume 88.0 fl (81-99); Nucleated Red Blood Cells % 0 %; Platelet Count 346 K/mm3 (142-424); Red Blood Count 4.34 M/mm3 (4.20-5.40); Red Cell Distribution Width-SD 44.3 fL; White Blood Count 8.6 K/mm3 (4.8-10.8)
[2025-04-25 17:54] LABS: INR 0.98 (0.9-1.1); Prothrombin Time 10.9 seconds (10.1-12.5)
[2025-04-25 18:29] LABS: Albumin Level 4.5 g/dl (3.5-5.0); Chloride 90 mmol/L (98-107); Potassium 3.5 mmoL/L (3.5-5.1); Sodium 135 mmol/L (136-145)
[2025-04-25 18:32] LABS: Alanine Aminotransferase 20 U/L (12-78); Albumin/Globulin Ratio 2.0 (1.1-1.8); Alkaline Phosphatase 94 U/L (38-126); Anion Gap 15.5 mEq/L (5-15); Aspartate Amino Transferase 27 U/L (14-36); Bilirubin,Total 0.3 mg/dl (0.2-1.3); Blood Urea Nitrogen 25 mg/dl (7-17); Calcium 9.6 mg/dl (8.4-10.2); Carbon Dioxide 33 mmol/L (22.0-30.0); Creatinine,Serum 1.00 mg/dl (0.52-1.04); Estimated Glomerular Filt Rate 55 ml/min (>60); GFR (African American) 66 ML/MIN (>60); Globulin 2.3 g/dL (1.3-3.2); Glucose 182 mg/dl (74-100); Total Protein,Serum 6.8 g/dl (6.3-8.2)
[2025-04-25 19:10] LABS: C-Reactive Protein 3.8 mg/L (0-4)
== END 2025-04-25 23:59 | disposition home or self-care (01) ==
PROVIDERS: PCP Family Medicine; Visit Provider Internal Medicine Gastroenterology
DX: B19.20 Unspecified viral hepatitis C without hepatic coma (principal); K75.4 Autoimmune hepatitis; K74.02 Hepatic fibrosis, advanced fibrosis; K90.0 Celiac disease
CPT/HCPCS: 36415; 80053; 82105; 85025; 85610; 86015; 86140; 86364

== ENCOUNTER 2025-05-25 09:35 | Outpatient (CLI) | payer MEDICARE, SELFPAY ==
--- OUTSIDE RECORDS SUMMARY | 2025-05-25 09:40 | XMS_ITS | Encounter Summary ---
Author Organization [facility] nter Address [address] [place] [address] Care Team Providers Care Custodian Name Role Phone German Aleman DO Primary Care Provider Reason for Referral * Imaging (Routine) - Authorized Specialty Diagnoses / Procedures Referred By Contangelique t Referred To Contact Radiology Diagnoses Other specified disorders of bone density and structure, multiple sites Procedures DEXA bone density axial skeleton German Aleman DO [address] [facility] [address] [place] [address] Phone: tel: fax: [facility], [facility] [address] [place] [address] Phone: tel: fax: Referral ID Status Reason Start Date Expiration Date Visits Requested Visits Authorized [id number] Authorized Specialty Services Required 12/15/2024 12/15/2025 1 1 Encounter Details Date Type Department Care Team (Late st Contact Info) Description 12/14/2024 Community Orders [facility] Link [address] [place] [id number] Ash German Garcia, DO [address] [facility] [address] [place] [phone] Osteopenia after menopause (Primary Dx); Other specified disorders of bone density and structure, multiple sites Social History Tobacco Use Types Packs/Day Years Used Date Smoking Tobacco: Never Smokeless Tobacco: Never Alcohol Use Standard Drinks/Week Comments Never 0 (1 standard drink = 0.6 oz pur e alcohol) Comments No Sex and Gender Information Value Date Recorded Sex Assigned at Female 10/09/2021 12:51 PM EST Legal Sex Female 12:51 PM EST Gender Identity Not on file Sexual Orientation Straight 03/01/2025 9: 46 AM EDT documented as of this encounter Plan of Treatment Upcoming Encounters Date Type Department Care Team (Late st Contact Info) Description 05/29/2025 9:30 AM EDT Appointment [facility] - GENERAL DIAGNOSTIC [address] [facility] [address] [place] [address] 06/22/2025 10:00 AM EST Office Visit [facility] [address] 6[address] [place] [address] Lauri Lindsey MD [address] [place], [place] [id number] 06/26/2025 11:00 AM EST Office Visit [facility] [address], [address] [place] [address] Tamara Burrows NP [address] [place] [address] 03/09/2026 9:30 AM EDT Office Visit [facility] [address], [address] [place] [address] Vianca Kelly MD [address] [place] [address] Scheduled Orders Name Type Priority Associated Diagnoses Orde r Schedule DEXA bone density axial skeleton Imaging Routine Other specified disorders of bone density and structure, multiple sites Expected: 12/15/2024, Expires: 12/15/2025 documented as of this encounter Visit Diagnoses Diagnosis Osteopenia after menopause- Primary Other specified disorders of bone density and structure, multiple sites documented in this encounter Care Teams Custodian Relationship Specialty Start Date End Date German Aleman DO [address] [address] PCP - General Family Medicine 12/26/22 documented as of this encounter
--- OUTSIDE RECORDS SUMMARY | 2025-05-25 09:40 | XMS_ITS | Clinical Summary ---
Author Organization Healthcare Address [address] [place] [address] Care Team Providers Care Plastics Plater Name Role Phone Kasie Breen MD Primary Care Provider [phone] Family History Medical History Relation Name Comments [...] of Treatment Not on file Care Teams Plastics Plater Relationship Specialty Start Date End Date Kasie Breen MD [address] [place], [place] [id number] PCP - General 12/14/20
--- OUTSIDE RECORDS SUMMARY | 2025-05-25 09:40 | XMS_ITS | Encounter Summary ---
Author Organization [facility] nter Address [address] [place] [address] Care Team Providers Care Family Specialist Name Role Phone German Aleman Primary Care Provider Encounter Details Date Type Department Care Team (Late st Contact Info) Description 10/22/2023 Telephone [facility] [address], [address]st [place] [address] Sen [address] [place] [address] Social History Tobacco Use Types Packs/Day Years [...] Info) Description 05/29/2025 9:30 AM EDT Appointment [facility] BLDG D [address], [place] [address] 06/22/2025 10:00 AM EST Office Visit [facility] ORTHOPEDIC PRACTICE [address], 6th [place] [address] Lauri Lindsey MD [facility] [place] [address] 06/26/2025 11:00 AM EST Office Visit [facility] CARDIOLOGY PRACTICE [address], [address]st [place] [address] Tamara Burrows NP [facility] [address] [place] [id number] 03/09/2026 9:30 AM EDT Office Visit [facility] VASCULAR PRACTICE [address], 1st [place] [address] Vianca Kelly MD [facility] [place] [address] documented as of this encounter Visit Diagnoses Not on filedocumented in this encounter Care Teams Family Specialist Relationship Specialty Start Date End Date German Aleman DO [address] [facility] [address] [place] [address] PCP - General Family Medicine 12/26/22 documented as of this encounter
--- OUTSIDE RECORDS SUMMARY | 2025-05-25 09:40 | XMS_ITS | Clinical Summary ---
Author Organization [facility] nter Address [address] [place] [address] Care Team Providers Care Tactical Debriefer Officer Name Role Phone AlemanGerman arias Primary Care [...] Encounters Date Type Department Care Team Description 05/19/2025 Travel 05/15/2025 Travel 03/08/2025 9:30 AM EDT Office Visit [facility] [address], 1st Floor [facility] [place] [address] Vianca Kelly MD Varicose veins of [...] Info) Description 05/29/2025 9:[address] [facility] - GENERAL DIAGNOSTIC [facility] D [address], [place] [address] 06/22/2025 10:00 AM EST Office Visit [facility] [address], 6th [place] [address] Lauri Lindsey MD [address] [place] [address] 06/26/2025 11:00 AM EST Office Visit [facility] CARDIOLOGY PRACTICE [address], 1st [place] [address] Tamara Burrows NP [address] [place], [place] [id number] 03/09/2026 9:30 AM EDT Office Visit [facility] VASCULAR PRACTICE [address], 1st [place] [address] Vianca Kelly MD [address] [place] [address] Health Maintenance Due Date Last [...] Influenza Vaccine (#1) 2025 Mammogram 2025 2024, 05/04, 05/22/2022, Additional history exists RSV 60+ and patients (1 - 1-dose 75+ series) 2028 Bone Density Scan Completed 06/18/2021, 06/18/2021 RSV under 20 month Aged Out No longer eligible based on patient's age to complete this topic Goals Goal Patient Goal Type Associated Problems Recent Progress Patient-Stated? Author Autogenerat ed Goal Care Plan Autogenerated Problem No Ash Bebe Lynn, [employer] Implanted Type Area Wire Worker Device Identifier Shelf Expiration Date Model / Serial / Lot Acetabular Shell G7 3h/46mm B [id number] - [id number] Implanted:Qty: 1 on 07/06/2024 by Lauri Lindsey MD at [facility], [facility] Left: Hip [employer] 01/03/2034 [id number] / / [id number] Screw Bone 6.5 X25 Self-Tapping - [id number] Implanted:Qty: 1 on 07/06/2024 by Lauri Lindsey MD at [facility], [facility] Left: Hip [employer] 05/23/2034 [id number] / / [id number] Acetabular System Liner 32mm Sz B - [id number] Implanted:Qty: 1 on 07/06/2024 by Lauri Lindsey MD at [facility], [facility] Left: Hip [employer] 02/10/2029 [id number] / / [id number] Biolox Delta Fem Head 32mm - [id number] Implanted:Qty: 1 on 07/06/2024 by Lauri Lindsey MD at [facility], [facility] Left: Hip [employer] 03/02/2034 [id number] / / [id number] Avenir Complete Hip System Sz 3 - [id number] Implanted:Qty: 1 on 07/06/2024 by Lauri Lindsey MD at [facility], [facility] Left: Hip [employer] 10/08/2028 [id number] / / [id number] Procedures Procedure Name Priority Date/Time Associated Diagnosis Comments HEMOGLOBIN A1C Routine 06/23/2024 1:00 PM EST Primary osteoarthritis of left hip Fatigue, unspecified type SOB (shortness of breath) Diabetes mellitus of other type without complication, unspecified whether filler leaf cutter long insulin use DEXA BONE DENSITY EXTREMITY Routine 06/18/2021 10:19 AM EST from Last 3 Months or Most Recently Relevant to Health Maintenance Results * (ABNORMAL) Hemoglobin A1c (06/23/2024 1:00 PM EST) Hemoglobin A1C 9.4(H) 3.0 - 6.0 % 06/23/2024 2:14 PM EST [facility] Comment: Additional Reference Ranges: 6.0 - 9.0% Controlled Diabetic >9.0 Poorly Controlled Diabetic *Hemoglobin A1c is an FDA approved test for monitoring senior living glucose control in individuals with diabetes. It is not an approved screening test for diagnosing type 1 and type 2 diabetes. Results of Hemoglobin A1c are not reliable in patients with chronic blood loss, consequent variable erythrocyte lifespan, hemolytic diseases, , and significant blood loss. MEAN BLOOD GLUCOSE 223.08 mg/dl 06/23/2024 2:14 PM EST [facility] Blood Venous blood specimen / Unknown Venipuncture / Unknown 06/23/2024 1:00 PM EST 06/23/2024 1:43 PM EST Narrative [facility] - 06/23/2024 2:14 PM EST Please note possible changes in reference range and units reported due to change in methodology. us Lauri Lindsey MD LAB BLOOD ORDERABLES Final Resul t [facility] [address] [place] [address], * DEXA bone density extremity (06/18/2021 10:19 [...] or Most Recently Relevant to Health Maintenance Additional Health Concerns Active Problems Noted Date Diagnosed Date Autogenerated Problem 05/02/2025 Insurance [employer] MEDICARE REPLACEMENT Advance Directives * Full Code (Latest Code Status on File) Date Activated Date Inactivated Comments 07/06/2024 7:40 AM 07/06/2024 7:34 PM Care Teams Tactical Debriefer Officer Relationship Specialty Start Date End Date German Aleman DO [address] [facility] [address] [place] [address] PCP - General Family Medicine 12/26/22
--- OUTSIDE RECORDS SUMMARY | 2025-05-25 09:40 | XMS_ITS | Encounter Summary ---
Author Organization [facility] nter Address [address] [place] [address] Care Team Providers Care Pearl Cutter Name Role Phone German Aleman Primary Care Provider Encounter Details Date Type Department Care Team (Late st Contact Info) Description 07/07/2024 Orders Only [facility] ORTHOPEDIC PRACT[facility] [address], 6th [place] [address] Barby Elvi Palomares, [employer] [address] [place] [address] Social History Tobacco Use Types Packs/Day Years [...] Info) Description 05/29/2025 9:30 AM EDT Appointment [facility] - GENERAL DIAGNOSTIC BL D [address], [place] [address] 06/22/2025 10:00 AM EST Office Visit [facility]THOPEDIC PRACTICE [address], 6th [place] [address] Lauir Lindsey MD [facility] [address] [facility] [place] [address] 06/26/2025 11:00 AM EST Office Visit [facility] CARDIOLOGY PRACTICE [address], 1st [place] [address] Tamara Burrows NP [address] [place] [id number] 03/09/2026 9:30 AM EDT Office Visit [facility] VASCULAR PRACTICE [address], 1st [place] [address] Vianca Kelly MD [facility] [place] [address] documented as of this encounter Visit Diagnoses Not on filedocumented in this encounter Care Teams Pearl Cutter Relationship Specialty Start Date End Date German Aleman DO [address] [facility] [address] [place] [address] PCP - General Family Medicine 12/26/22 documented as of this encounter
--- OUTSIDE RECORDS SUMMARY | 2025-05-25 09:40 | XMS_ITS | Encounter Summary ---
Author Organization [facility] nter Address [address] [place] [address] Care Team Providers Care Potato Chip Sorter Name Role Phone German Aleman Primary Care Provider Encounter Details Date Type Department Care Team (Latest Contact Info) Description 05/19/2025 Travel Social History Tobacco Use Types Packs/Day [...] D [address], [place] [address] 06/22/2025 10:00 AM EST Office Visit [facility] [address], 6th [place] [address] Lauri Lindsey MD [address] [facility] [place] [address] 06/26/2025 11:00 AM EST Office Visit [facility] CARDIOLOGY PRACTICE [address], [address] [place] [facility] [place] [address] Tamara Burrows NP [address] [place] [id number] 03/09/2026 9:30 AM EDT Office Visit [facility] VASCULAR PRACTICE [address], 1[address] Floor [place] [facility] [place] [address] Vianca Kelly MD [address] [facility] [place] [address] documented as of this encounter Goals Goal Patient Goal Type Associated Problems Recent Progress Patient-Stated? Author Autogenerat ed Goal Care Plan Autogenerated Problem No Bebe Aleman LPN documented as of this encounter Visit Diagnoses Not on filedocumented in this encounter Additional Health Concerns Active Problems Noted Date Diagnosed Date Autogenerated Problem 05/02/2025 documented as of this encounter Care Teams Potato Chip Sorter Relationship Specialty Start Date End Date German Aleman DO [address] [facility] [address] [facility] [place] [address] PCP - General Family Medicine 12/26/22 documented as of this encounter
--- OUTSIDE RECORDS SUMMARY | 2025-05-25 09:40 | XMS_ITS | Encounter Summary ---
Author Organization [facility] nter Address [address] [place] [address] Care Team Providers Care Skip Pitman Name Role Phone German Aleman DO Primary Care Provider Reason for Referral * Consultation (Routine) - Authorized Specialty Diagnoses / Procedures Referred By Breanne bates Referred To Contact Diabetes Services Diagnoses Diabetes education, encounter for Procedures AR OFFICE/OUTPATIENT NEW SF MDM 15 MINUTES AR OFFICE/OUTPATIENT NEW LOW MDM 30 MINUTES AR OFFICE/OUTPATIENT NEW MODERATE MDM 45 MINUTES AR OFFICE/OUTPATIENT NEW HIGH MDM 60 MINUTES AR OFFICE/OUTPATIENT ESTABLISHED SF MDM 10 MIN AR OFFICE/OUTPATIENT ESTABLISHED LOW MDM 20 MIN AR OFFICE/OUTPATIENT ESTABLISHED MOD MDM 30 MIN AR OFFICE/OUTPATIENT ESTABLISHED HIGH MDM 40 MIN German Aleman DO [address] [facility] [address] [place] [address] Phone: tel: fax: [facility] DIABETES EDUCATION [address], 2nd [place] [address] Phone: tel: fax: Referral ID Status Reason Start Date Expiration Date Visits Requested Visits Authorized [id number] Authorized Specialty Services Required 11/07/2024 11/07/2025 1 3 Encounter Details Date Type Department Care Team (Late st Contact Info) Description 11/07/2024 Community Orders [facility] Link [address] [place], [place] [phone] German Aleman DO [address] [facility] [address] [place] [phone] Diabetes education, encounter for (Primary Dx) Social [...] Info) Description 05/29/2025 9:30 AM EDT Appointment [facility] DIAGNOSTIC CENTER - GENERAL DIAGNOSTIC [facility] D [facility] [address], [facility] [place] [address] 06/22/2025 10:00 AM EST Office Visit [facility] [address], 6th [place] [address] Lauri Lindsey MD [address] [place], [place] [address] 06/26/2025 11:00 AM EST Office Visit [facility] [address], 1st [place] [address] Tamara Burrows NP [address] [place] [address] 03/09/2026 9:30 AM EDT Office Visit [facility] [address], 1st Floor [place] [facility] [place] [address] Vianca Kelly MD [address] [facility] [place] [address] Scheduled Referrals Name Type Priority Associated Diagnoses Order Schedule Ambulatory referral/appointment with Diabetic Education Outpatient Referral Routine Diabetes education, encounter for Expected: 11/07/2024 (Approximate), Expires: 11/07/2025 documented as of this encounter Visit Diagnoses Diagnosis Diabetes education, encounter for- Primary documented in this encounter Care Teams Skip Pitman Relationship Specialty Start Date End Date German Aleman DO [address] [facility] [address] [place] [address] PCP - General Family Medicine 12/26/22 documented as of this encounter
--- OUTSIDE RECORDS SUMMARY | 2025-05-25 09:40 | XMS_ITS | Clinical Summary ---
Author Organization [facility] Address [address] [place] [address] Care Team Providers Care Range Mechanic Name Role Phone AlemanGerman arias Jose Primary [...] (Two) Times a Day. Active Probiotic Product (GigsJam PO) Take by mouth. Acti ve aspirin [...] Info) Description 06/08/2025 2:20 PM EST Appointment [facility] [place] [address] Health Maintenance Due Date Last [...] WELLNESS VISIT 12/23/2017 HEPATITIS C SCREENING 12/23/2017 COVID-19 Vaccine (3 - Pfizer risk series) 11/06/2020 10/09/2020, 09/18/2020 DXA SCAN 06/18/2023 06/18/2021, 06/18/2021 INFLUENZA VACCINE 03/03/2025 MAMMOGRAM 2026 2024, 05/04, 05/22/2022, Additional history [...] Most Recently Relevant to Health Maintenance Insurance [facility] [employer] PPO Care Teams Range Mechanic Relationship Specialty Start Date End Date German Aleman DO [address] [facility] [address] [place] [id number] PCP - General Family Medicine 05/22/22
--- OUTSIDE RECORDS SUMMARY | 2025-05-25 09:40 | XMS_ITS | Encounter Summary ---
Author Organization [facility] nter Address [address] [place] [address] Care Team Providers Care Package Reinspector Name Role Phone German Aleman Primary Care Provider Encounter Details Date Type Department Care Team (Late st Contact Info) Description 03/20/2023 Orders Only [facility] VASCULAR PRACTICE [address], 1st [place] [address] Vianca Kelly MD [address] [place] [address] Social History Tobacco Use Types [...] Info) Description 05/29/2025 9:30 AM EDT Appointment [facility] DIAGNOSTIC CENTER - GENERAL DIAGNOSTIC BLDG D [address], [facility] [place] [address] 06/22/2025 10:00 AM EST Office Visit [facility] ORTHOPEDIC PRACTICE [address], 6th [place] [address] Lauri Lindsey MD [address] [facility] [place] [address] 06/26/2025 11:00 AM EST Office Visit [facility] CARDIOLOGY PRACTICE [address], 1st [place] [address] Tamara Burrows NP [address] [place] [phone] 03/09/2026 9:30 AM EDT Office Visit [facility] VASCULAR PRACTICE [address], 1st [place] [address] Vianca Kelly MD [address] [facility] [place] [address] documented as of this encounter Visit Diagnoses Not on filedocumented in this encounter Care Teams Package Reinspector Relationship Specialty Start Date End Date German Aleman DO [address] [facility] [address] [place] [address] PCP - General Family Medicine 12/26/22 documented as of this encounter
--- OUTSIDE RECORDS SUMMARY | 2025-05-25 09:40 | XMS_ITS | Encounter Summary ---
Author Organization [facility] nter Address [address] [place] [address] Care Team Providers Care Acquisitions Librarian Name Role Phone German Aleman Primary Care Provider Encounter Details Date Type Department Care Team (Late st Contact Info) Description 12/01/2023 Telephone [facility] [address], [address]st [place] [address] Emilie Narvaez [address] [place] [address] Social History Tobacco Use Types Packs/Day Years [...] BLDG D [address], [place] [address] 06/22/2025 10:00 AM EST Office Visit [facility] ORTHOPEDIC PRACTICE [address], 6th [place] [address] Lauri Lindsey MD [facility] [place] [address] 06/26/2025 11:00 AM EST Office Visit [facility] CARDIOLOGY PRACTICE [address], 1st [place] [address] Tamara Burrows NP [facility] [place] [address] 03/09/2026 9:30 AM EDT Office Visit [facility] VASCULAR PRACTICE [address], 1st [place] [address] Vianca Kelly MD [facility] [place] [address] documented as of this encounter Visit Diagnoses Not on filedocumented in this encounter Care Teams Acquisitions Librarian Relationship Specialty Start Date End Date German Aleman DO [address] [facility] [address] [place] [address] PCP - General Family Medicine 12/26/22 documented as of this encounter
--- OUTSIDE RECORDS SUMMARY | 2025-05-25 09:41 | XMS_ITS | Encounter Summary ---
Author Organization [facility] nter Address [address] [place] [address] Care Team Providers Care Digital Marketing Consultant Name Role Phone German Aleman Primary Care Provider Encounter Details Date Type Department Care Team (Latest Contact Info) Description 05/15/2025 Travel Social History Tobacco Use Types Packs/Day [...] BLDG D [address], [place] [address] 06/22/2025 10:00 AM EST Office Visit [facility] [address], 6th [place] [address] Lauri Lindsey MD [address] [facility] [place] [address] 06/26/2025 11:00 AM EST Office Visit [facility] CARDIOLOGY PRACTICE [address], 1[address] [place] [facility] [place] [address] Tamara Burrows NP [address] [place] [phone] 03/09/2026 9:30 AM EDT Office Visit [facility] VASCULAR PRACTICE [address], 1[address] Floor [place] [facility] [place] [address] Vianca Kelly MD [address] [facility] [place] [address] documented as of this encounter Goals Goal Patient Goal Type Associated Problems Recent Progress Patient-Stated? Author Autogenerat ed Goal Care Plan Autogenerated Problem No Bebe Aleman LPN documented as of this encounter Visit Diagnoses Not on filedocumented in this encounter Additional Health Concerns Active Problems Noted Date Diagnosed Date Autogenerated Problem 05/02/2025 documented as of this encounter Care Teams Digital Marketing Consultant Relationship Specialty Start Date End Date German Aleman DO [address] [facility] [address] [facility] [place] [address] PCP - General Family Medicine 12/26/22 documented as of this encounter
--- NOTE | 2025-05-25 10:00 | US_ITS ---
FINAL REPORT CLINICAL HISTORY: Autoimmune hepatitis COMPARISON: none FINDINGS: HEPATIC ULTRASOUND ELASTOGRAPHY EQUIPMENT: Wade EPIQ Elite 5, C5-1 probe FINDINGS: The median liver stiffness value is 1.28 m/s (4.91 KPa) consistent with no-mild fibrosis. The IQR/med is 61%. IMPRESSION: Measurements suggestive of no-mild fibrosis. Note: In the setting of elevated 1iver function tests, post prandial state, and CHF the degree of liver fibrosis may be overestimated Liver Stiffness Value Recommendation (per SRU): <= 5 kPa (1.3 m/sec) High probability of being normal < 9 kPa (1.7 m/sec) In the absence of other known clinical signs, rules out cACLD. If there are known clinical signs, may need further test for confirmation 9-13 kPa (1.7-2.1 m/sec) Suggestive of cACLD but need further test for confirmation > 13 kPa (2.1 m/sec) Rules in cACLD > 17 kPa (2.4 m/sec) Suggestive of CSPH Note.-ARFI = acoustic radiation force impulse, cACLD = compensated advanced chronic liver disease, CSPH = clinically significant portal hypertension, NAFLD = non-alcoholic fatty liver disease. Reviewed, Interpreted and Dictated by Jet Maldonado MD Transcribed by Anita Castañeda Authenticated and [facility]
== END 2025-05-25 23:59 | disposition home or self-care (01) ==
LOC: RAD 09:36
PROVIDERS: PCP Family Medicine; Visit Provider Internal Medicine Gastroenterology
DX: K74.02 Hepatic fibrosis, advanced fibrosis (principal); K75.4 Autoimmune hepatitis; R74.8 Abnormal levels of other serum enzymes
CPT/HCPCS: 76981

== ENCOUNTER 2025-05-25 10:36 | Day surgery (SDC) | payer MEDICARE, SELFPAY ==
[2025-05-23 13:52] VITALS: BMI 27.9
--- NOTE | 2025-05-24 14:37 | EXP.HP ---
History of Present Illness *Admission Date: 05/25/25 *History of present illness: Mrs. Carter is a 69-year-old female who is here for screening/surveillance colonoscopy. Her last colonoscopy was December 2014. She reports no abdominal pain, weight loss, change in her bowel habits or rectal bleeding. The patient's celiac disease was diagnosed in 2011 by duodenal biopsy. The examination is deemed medically necessary for screening/surveillance colonoscopy. The patient has been seen, interviewed and examined prior to the procedure by both myself and the anesthesia provider. [facility] Disclaimer: The information contained in this section may have been updated after the patient was seen, as this information can be updated by other users. Medical History Schatzki's ring Hiatal hernia GERD (gastroesophageal reflux disease) Diabetes Celiac disease Autoimmune hepatitis Surgical History History of hip replacement H/O: hysterectomy History of cataract surgery Hx of tonsillectomy History of bladder surgery Family History Father Liver cancer Prostate cancer Social History Smoking Status: Never smoker alcohol intake: never substance use type: denies use current occupational status: employed Travel in the last 8 weeks?: Inside the [place] caffeine: Yes Have you lived/traveled outside US in past 30 days?: No Contact w/someone who lives/traveled outside US past 30 days?: No Exposure to someone with infectious disease in past 14 days?: No Do you have a fever (greater than 100.4 F or 38 C)?: No Have you tested positive for COVID-19?: No Exposed to someone with COVID-19 in past 14 days?: No Do you have a sore throat?: No Do you have a cough?: No Do you have any weakness?: No Are you experiencing any nausea/vomitting?: No Do you have any diarrhea?: No Are you experiencing any unusual bleeding?: No Do you have any muscle aches/pain?: No Do you have any abdominal pain?: No Are you experiencing loss of taste or smell?: No Review of Systems Review of Systems Review of systems (narrative): Negative *Cardiovascular Comments: Negative *Gastrointestinal Comments: Negative *Genitourinary Comments: Negative *Musculoskeletal Comments: Negative *Neurologic Comments: Negative Meds Home Medications and Allergies Home Medications ?Medication ?Instructions ?Recorded ?Confirmed ?Type Lactobacillus rhamnosus-Bifidobac. 1 cap PO DAILY 04/25/25 05/25/25 History animalis 3 billion cell capsule (Donde) aspirin 81 mg tablet,delayed 81 mg PO DAILY 04/25/25 05/25/25 History release (Adult Low Dose Aspirin) biotin 2,500 mcg capsule 5,000 mcg PO DAILY 04/25/25 05/25/25 History calcium 325 mg-vit D3 12.5 1 tab PO DAILY 04/25/25 05/25/25 History mcg-zinc 2.75 rd-jxjyjl-jhhozwjcw tablet (Citracal-D3 Maximum Plus) carvedilol 12.5 mg tablet 12.5 mg PO BID 04/25/25 05/25/25 History cholecalciferol (vitamin D3) 25 25 mcg PO DAILY 04/25/25 05/25/25 History mcg (1,000 unit) capsule clobetasol 0.05 % scalp solution 1 applic topical NEEDED PRN see 04/25/25 05/25/25 History coenzyme Q10 75 mg capsule (Ultra 75 mg PO DAILY 04/25/25 05/25/25 History CoQ10) desloratadine-pseudoephedrine ER 1 tab PO BID 04/25/25 05/25/25 History 2.5 mg-120 mg tab,ext.release mp 12hr (Clarinex-D 12 HOUR) desonide 0.05 % topical cream 1 applic topical DAILY PRN Itching 04/25/25 05/25/25 History docusate sodium 100 mg capsule 100 mg PO DAILY PRN Constipation 04/25/25 05/25/25 History (Stool Softener) doxycycline monohydrate 100 mg 100 mg PO DAILY 04/25/25 05/25/25 History capsule estradiol 0.05 mg/24 hr semiweekly 1 patch transdermal 2XW 04/25/25 05/25/25 History transdermal patch estradiol 0.1 mg/24 hr semiweekly 1 patch transdermal 2XW 04/25/25 05/25/25 History transdermal patch furosemide 20 mg tablet 20 mg PO DAILY 04/25/25 05/25/25 History glimepiride 2 mg tablet 2 mg PO BID 04/25/25 05/25/25 History glucosamine 750 tv-mfogburorec-pli 1 tab PO BID 04/25/25 05/25/25 History no1 644 mg-C 30 mg-eddie 1 mg tablet (Osteo Bi-Flex Triple Strength) ketoconazole 2 % shampoo 1 ea topical DAILY 04/25/25 05/25/25 History losartan 100 1 tab PO DAILY 04/25/25 05/25/25 History mg-hydrochlorothiazide 25 mg tablet melatonin 10 mg capsule 10 mg PO HS PRN Insomnia 04/25/25 05/25/25 History metformin 500 mg tablet,extended 1,000 mg PO BID 04/25/25 05/25/25 History release 24 hr methylcellulose (with sugar) oral 1 tbsp PO DAILY 04/25/25 05/25/25 History powder (Citrucel (sucrose) oral powder) multivitamin 1 tab PO DAILY 04/25/25 05/25/25 History omeprazole 20 mg capsule,delayed 20 mg PO DAILY 04/25/25 05/25/25 History release polyethylene glycol 3350 17 17 g PO DAILY 04/25/25 05/25/25 History gram/dose oral powder (Miralax) pravastatin 40 mg tablet 40 mg PO HS 04/25/25 05/25/25 History ursodiol 300 mg capsule 600 mg PO BID 04/25/25 05/25/25 History vitamins A,C,Y-jaua-bfyfka 4,296 1 cap PO BID 04/25/25 05/25/25 History mcg-226 mg-90 mg capsule (PreserVision AREDS) sodium,potassium,mag sulfates 17.5 See Rx Instructions PO .COMPLEX 05/03/25 05/23/25 Rx gram-3.13 gram-1.6 gram oral soln #354 mL (Suprep Bowel Prep Kit) New Prescriptions to Start Prescriptions: Allergies Allergy/AdvReac Type Severity Reaction Status Date / Time acetaminophen (From Percocet) AdvReac Nausea Verified 05/25/25 11:13 oxycodone (From Percocet) AdvReac Nausea Verified 05/25/25 11:13 Exam Data for Last 24 hours I & O for Last 24 hours: Intake & Output 05/21/25 05/22/25 05/23/25 05/24/25 23:59 23:59 23:59 23:59 Weight 163 lb *Routine HEENT Exam Head: Present normocephalic Eye: Present EOMI and PERRL ENT: Present mucous membranes moist *Routine Neck Exam Neck: Present supple *Routine Respiratory Exam Respiratory: Present CTA bilaterally *Routine Cardiovascular Exam Cardiovascular: Present RRR *Routine Abdominal Exam Abdominal: Present soft and normoactive bowel sounds; Absent tenderness *Routine Rectal Exam Rectal:: deferred *Routine Genitalia Exam Genitalia:: deferred *Routine Extremities Exam Extremities: Absent cyanosis, clubbing or edema *Routine Skin Exam Skin: Present warm; Absent rash *Routine Neurological Exam Neurological: Present alert and oriented X3 Assessment and Plan *Assessment and plan (1) Screening for colon cancer: Status: Acute Category: Medical Code(s): Z12.11 - Encounter for screening for malignant neoplasm of colon Plan A/P: 1. Screening for colon cancer is the preprocedural diagnosis. The patient will be anesthetized/sedated using MAC sedation. The patient has been seen and examined. Cardiac and lung assessment prior to the examination is stable. Proceed with planned screening colonoscopy.
--- NOTE | 2025-05-25 07:01 | HMH.PROCNOTE ---
[facility] Procedure Note Date: 05/25/25 Time: 12:41 Procedure Note:: Colonoscopy Procedure Report: Colonoscopy Endoscopist: Ricci Ware II, MD Referring physician: German Aleman DO, [address] [facility], [place] [address] Date of Procedure: May 25, 2025 Equipment: Olympus [id number] adult colonoscope Sedation: MAC sedation Indication: Mrs. Carter is a 69-year-old female who is here for screening/surveillance colonoscopy. Her last colonoscopy was December 2014. The patient reports no abdominal pain, weight loss, change in her bowel habits or rectal bleeding. She reports no family history of colon cancer. The patient's celiac disease was diagnosed in 2011 by duodenal biopsy. The patient is gluten-free and her recent celiac serologies (tissue transglutaminase) was normal. The patient has had some elevated liver chemistries and her recent labs were normal (AST 27, ALT 20 and alkaline phosphatase 94). Her CRP was 3.8. She has done well with ursodiol. Her elastography today shows no significant hepatic fibrosis. The examination is deemed medically necessary for screening/surveillance colonoscopy. Procedure: Prior to the procedure, a history and physical exam was performed, and patient's medications and allergies were reviewed. The risks, benefits and alternatives of the sedation and procedure were discussed with the patient. All questions were answered and informed consent was obtained. The patient was brought to the procedure room. Patient identification and proposed procedure were verified by the physician and the nurse. The patient was placed in a left lateral decubitus position and the scope was passed under direct vision. Throughout the procedure, the patient's blood pressure, pulse, and oxygen saturations were monitored continuously. The colonoscopy was accomplished without difficulty. The patient tolerated the procedure well. Findings: On digital rectal examination there was normal rectal tone. There were no external hemorrhoids but there was some internal hemorrhoidal prolapse. The colonoscope was introduced through the anal canal to the rectum and advanced to the cecum. The ileocecal valve and appendiceal orifice were identified. The scope was advanced a short distance into the ileum which appeared grossly normal. The scope was then withdrawn into the colon. The cecum, ascending, transverse, descending, sigmoid and rectum were grossly normal. There were no mucosal abnormalities identified. Upon retroflexion within the rectum there were grade 2-3 internal hemorrhoids. The preparation was excellent throughout with [place] Preparation Score of 9. The cecal time was 11 minutes. Impression: 1. Normal colonoscopy with intubation of the terminal ileum 2. Grade 2-3 internal hemorrhoids Plan: The patient will not require any further preventative/surveillance colonoscopy. Her ultrasound elastography today shows no hepatic fibrosis (stage F2 0?F1). I would recommend continuation of ursodiol, gluten-free diet and follow-up annually.
[2025-05-25 11:10] VITALS: BP 131/64; PULSE 88; RESP 16; TEMP 36.7; O2SAT 95
[2025-05-25] MEDS: LACTATED RINGERS 1000ML 1,000 ML 50 ML IV (11:27)
--- NOTE | 2025-05-25 12:20 | EXP.ANES.CKL ---
[facility] Disclaimer: The information contained in this section may have been updated after the patient was seen, as this information can be updated by other users. Medical History Schatzki's ring Hiatal hernia GERD (gastroesophageal reflux disease) Diabetes Celiac disease Autoimmune hepatitis Surgical History History of hip replacement H/O: hysterectomy History of cataract surgery Hx of tonsillectomy History of bladder surgery Family History Father Liver cancer Prostate cancer Social History Smoking Status: Never smoker alcohol intake: never substance use type: denies use current occupational status: employed Travel in the last 8 weeks?: Inside the [place] caffeine: Yes Have you lived/traveled outside US in past 30 days?: No Contact w/someone who lives/traveled outside US past 30 days?: No Exposure to someone with infectious disease in past 14 days?: No Do you have a fever (greater than 100.4 F or 38 C)?: No Have you tested positive for COVID-19?: No Exposed to someone with COVID-19 in past 14 days?: No Do you have a sore throat?: No Do you have a cough?: No Do you have any weakness?: No Are you experiencing any nausea/vomitting?: No Do you have any diarrhea?: No Are you experiencing any unusual bleeding?: No Do you have any muscle aches/pain?: No Do you have any abdominal pain?: No Are you experiencing loss of taste or smell?: No [facility] Anesthesia Checklist Patient Identification Patient Identification: Arm Band Structural Data Admitted From: Home Planned Operative Procedure/s: Colonoscopy Consent for Planned Operative Procedure(s) Verified: Yes Verified Documents: Surgical Consent and History and Physical NPO Status Verified Time NPO: 00:00 Additional verifications Anesthesia Reactions: No Airway Assessment Mallampati Score:: Class II C-Spine Mobility Assessed: Yes TMJ Mobility Assessed: Yes Dentition: Good Dentition Neurological Assessment Level of Consciousness: Awake, Alert and Appropriate Anesthesia Plan Anesthesia Risk discussed: Yes Anesthesia Plan: Verified ASA Class: II Anesthesia Type: MAC
[2025-05-25 12:43] VITALS: BP 134/62; PULSE 93; RESP 18; TEMP 36.2; O2SAT 98
[2025-05-25 12:53] VITALS: BP 135/63; PULSE 81; RESP 18; O2SAT 100
[2025-05-25 13:03] VITALS: BP 114/62; PULSE 81; RESP 18; O2SAT 99
[2025-05-25 13:13] VITALS: BP 112/61; PULSE 84; RESP 16; O2SAT 97
[2025-05-25 16:12] LABS: POC Glucose,Bedside 138 gm/dL (70-110)
== END 2025-05-25 13:13 | disposition home or self-care (01) ==
PROVIDERS: PCP Family Medicine; Visit Provider Internal Medicine Gastroenterology
PROC: 0DJD8ZZ Inspection of Lower Intestinal Tract, Via Natural or Artificial Opening Endoscopic (ICD-10-PCS; CPT 45378; principal; 2025-05-25 13:00)
DX: Z12.11 Encounter for screening for malignant neoplasm of colon (principal); K64.1 Second degree hemorrhoids; K64.2 Third degree hemorrhoids; K21.9 Gastro-esophageal reflux disease without esophagitis; E66.9 Obesity, unspecified; K90.0 Celiac disease; Z79.82 Long term (current) use of aspirin; Z79.84 Long term (current) use of oral hypoglycemic drugs; Z88.5 Allergy status to narcotic agent; Z88.6 Allergy status to analgesic agent
CPT/HCPCS: 45378; 82962; J2003; J2704; J7120